=== PATIENT | female | born 1950 | race Caucasian/White ===

== ENCOUNTER 2018-09-09 06:30 | Day surgery (SDC) | payer MEDICARE, BC ==
--- NOTE | 2018-09-09 06:26 | History and Physical - [place] ---
CHIEF COMPLAINT/HISTORY OF CHIEF COMPLAINT: This patient presents with a history of intractable cervical and lumbar radiculopathy. Due to the failure of therapy, spinal cord stimulators were implanted both cervical and lumbar. Although the systems have over the years provided excellent pain control, over the last year she has had increasing amounts of breakthrough pain. Attempts at reprogramming this system have failed. A new generator offered by the detacher [employer] called Wavewriter allows for more programming options, better waveform characteristics, overlapping waveform potential, all improving potential pain control. She is here for generator replacement with both cervical and lumbar systems with the new Wavewriter technology. PAST MEDICAL HISTORY: Hypothyroidism, chronic anemia, and intractable radiculopathy. PAST SURGICAL HISTORY: Spinal cord stimulator upper and lower and nephrectomy. MEDICATIONS ON ADMISSION: List to be provided. ALLERGIES: MORPHINE, DILAUDID, AND CELEBREX. POSSIBLE ANESTHESIA SENSITIVITY. FAMILY/PSYCHOSOCIAL HISTORY: Social history - Noncontributory. Family history - Noncontributory. SYSTEMS REVIEW: The patient seems appropriate in no acute distress. The remainder of the systems review is positive for fibromyalgia, headaches, degenerative arthritis, chronic obstructive pulmonary disease, hypertension, anemia, and sleep disturbance. PHYSICAL EXAMINATION: Height is 5'5", weight is 180. No vital signs. HEENT: Within normal limits. LUNGS: Clear. HEART: Regular rate and rhythm. ABDOMEN: Nontender. MUSCULOSKELETAL: Examination of the musculoskeletal system shows the generators in the left and right posterior gluteal margins incisional sites are intact. There is an upper extremity component and a lower extremity component in the extremities. The sensory [place] are intact. NEUROLOGIC: Cranial nerves are intact. IMPRESSION: 1. INTRACTABLE CERVICAL LUMBAR RADICULOPATHY, ICD-10 CODE M54.12 AND M54.16. 2. SPINAL CORD STIMULATOR CERVICAL AND LUMBAR FOR INTERNAL GENERATOR REPLACEMENT. PLAN: The patient is here for removal and replacement of the generators and both cervical and lumbar stimulators. The procedure will be considered outpatient and an overnight stay will not be necessary. JOB NUMBER: [id number] [facility]
[~2018-09-09 06:30] MED LIST: ACETAMINOPHEN 1,000 MG/100 ML BTL IV ONE; CEFAZOLIN 2 Gram 2 GM/50 ML BAG IVPB ONE; FAMOTIDINE 20MG TABLET PO ONE; MECLIZINE 25 MG TABLET PO ONE; METOCLOPRAMIDE 10 MG TABLET PO ONE
[2018-09-09] MEDS ORDERED: KETAMINE HCL 100MG/1ML VIAL INJ ONE (06:31)
[2018-09-09] MEDS ORDERED: FENTANYL PF 100MCG/2ML VIAL IV ONE (06:31)
[2018-09-09] MEDS ORDERED: PROPOFOL 10 MG/ML VIAL IV ONE (06:31)
[2018-09-09] MEDS ORDERED: CEFAZOLIN 1G VIAL IM ONE (06:31)
[2018-09-09] MEDS ORDERED: LIDOCAINE 1% W/EPI 1:200,000 MPF 30ML SQ ONE (06:31)
[2018-09-09] MEDS ORDERED: MIDAZOLAM HCL 2MG/2ML VIAL IV ONE (06:31)
[2018-09-09] MEDS ORDERED: LIDOCAINE 2% MDV (20MG/ML) 20ML VIAL IV ONE (06:31)
[2018-09-09] MEDS ORDERED: 0.9 % SODIUM CHLORIDE 10 ML VIAL IVP ONE (06:31)
[2018-09-09] MEDS ORDERED: BUPIVACAINE 0.5% W/EPI MPF 30 ML VIAL IVP ONE (06:31)
--- NOTE | 2018-09-09 16:15 | Operative Note ---
DATE OF SURGERY: 09/09/18 PRIMARY DOCTOR: DR. NANETTE BARTON PREOPERATIVE DIAGNOSES: 1. CERVICAL LUMBAR RADICULOPATHY, ICD-10 CODE = M54.12 AND M54.16. 2. CERVICAL SPINAL CORD STIMULATOR CERVICAL AND LUMBAR WITH BATTERY DEPLETION. OPERATION: 1. FLUOROSCOPICALLY-GUIDED INCISION, SUBCUTANEOUS DISSECTION, AND REMOVAL AND REPLACEMENT OF INTERNAL PULSE GENERATOR FOR CERVICAL SPINAL CORD STIMULATOR WITH WAVEWRITER, [employer]. 2. INCISION, SUBCUTANEOUS DISSECTION, AND REMOVAL AND REPLACEMENT OF INTERNAL PULSE GENERATOR FOR LUMBAR STIMULATOR, [employer] WAVE[employer]ITER. SURGEON: EMMY LIM D.O. ANESTHESIA: LOCAL SEDATION. ANESTHESIA PROVIDER: RAN ODOM CRNA. INDICATION: This patient with a history of intractable cervical and lumbar radiculopathy. Due to the failure of conservative therapies over a number of years, a spinal cord stimulator was implanted both cervical and lumbar at separate times. Although both systems seemed to work, over time the stimulation patterns started to fail. She is here for replacement of generator with the new [employer] WaveWriter. PROCEDURE: Intravenous line, vital sign monitoring, IV sedation, prepped and draped in sterile technique. Under imaging, the incision at the right flank for the cervical stimulator infiltrated, incision made, and subcutaneous dissection was conducted to the generator. The generator was exteriorized, from the indwelling leads, and removed and then replaced with a [employer] WaveWriter. The generator and its connection to the indwelling leads placed into the pouch. Antibiotic irrigation and Bovie for hemostasis. The incision was closed using STRATAFIX suture 2-0 fascia and 3-0 skin. Dermabond closure. At the left posterior gluteal margin generator pouch for the lumbar stimulator, skin infiltrated, incision made, and subcutaneous dissection was conducted to the pouch. The generator was then exteriorized and from the indwelling leads. Antibiotic irrigation and Bovie for hemostasis. The new [employer] WaveWriter generator placed onto the field and interfaced with the indwelling leads. The generator was placed into the pouch and then the incision was closed using STRATAFIX suture 2-0 fascia, 3-0 skin. Dermabond closure. The generators were then programmed using complex parameters in the Recovery Room, 20 minutes cervical, 20 minutes lumbar. With good stimulation patterns, patient appropriate showing no side-effects, she was prepared for discharge. DISCHARGE INSTRUCTIONS: 1. Although the Dermabond will allow showering, she should not sit in water. 2. Standard medications resumed including the antibiotic Levaquin 500 mg once a day for 14 days. 3. The office will contact the patient in 12-24 hours to set up an appointment time in 7-10 day to evaluate the sites. Until then, her activities should stay low. All other instructions provided, numbers to contact with problems given. She was then discharged. cc: Dr. Nanette Barton JOB NUMBER: [id number] [facility]
== END 2018-09-09 09:20 | disposition home or self-care (01) ==
LOC: SUR 06:30
PROVIDERS: ATTEND Pain Medicine Interventional Pain Medicine
DX: M54.12 Radiculopathy, cervical region (principal); M54.16 Radiculopathy, lumbar region; I10 Essential (primary) hypertension; E03.9 Hypothyroidism, unspecified; G25.81 Restless legs syndrome; G47.33 Obstructive sleep apnea (adult) (pediatric)
CPT/HCPCS: 95972; C1820; J0690; J3490